=== PATIENT | female | born 1940 | race Caucasian/White ===

== ENCOUNTER → 2019-10-17 12:35 | Outpatient (CLI) | payer MEDICARE, OTHER, SELFPAY ==
[2013-02-16 10:15] VITALS: BMI 36.9
[2019-10-17 15:32] LABS: Hematocrit 40.1 % (37-47); Hemoglobin 13.3 g/dL (12.0-15.0); Mean Corp Hgb Conc 33.2 g/dL (32-36); Mean Corpuscular Hgb 29.6 pg (27.0-32.0); Mean Corpuscular Volume 89.3 fL (81-99); Mean Platelet Vol. 10.3 fl (6.2-12.0); Platelet Count 261 K/mm3 (150-450); RBC Distribution Width SD 42.6 fl (35.1-43.9); Red Blood Count 4.49 M/mm3 (4.2-5.4); White Blood Count 8.3 K/mm3 (4.4-11.0)
== END ==
PROVIDERS: PCP Family Medicine; Referring Provider Internal Medicine Pulmonary Disease; Visit Provider Internal Medicine Pulmonary Disease
DX: I10 Essential (primary) hypertension (principal); R05 Cough; T78.40XA Allergy, unspecified, initial encounter; X58.XXXA Exposure to other specified factors, initial encounter
CPT/HCPCS: 36415; 85027

== ENCOUNTER → 2022-02-20 | Outpatient (CLI) | payer MEDICARE, OTHER, SELFPAY ==
--- NOTE | 2022-02-20 12:57 | CT_ITS ---
STUDY: CT RIGHT SHOULDER REASON FOR EXAM: Female, 81 years old. Preoperative evaluation. RADIATION DOSAGE (If Supplied By Facility): CTDIvol = ( 25.74 ) mGy, DLP = ( 636.63 ) mGycm TECHNIQUE: The patient was scanned in a multi detector CT scanner. High resolution transaxial imaging was performed without the administration of intravenous contrast material. Sagittal and coronal images were reconstructed. Individualized dose optimization techniques were used for this CT. COMPARISON: None. FINDINGS: Osteopenia. Marked arthrosis of the glenohumeral joint with near complete loss of articular cartilage and large osteophytes. Moderate arthrosis of the AC joint. Large glenohumeral joint effusion with multiple intra-articular osteochondral bodies within the joint and the subscapularis recess, largest of which measures approximately 2 cm in widest diameter. CT/Extremity Upper without Contra IMPRESSION: Osteopenia with marked osteoarthrosis of the glenohumeral joint with large osteophytes. Mild arthrosis of the AC joint. Large glenohumeral joint effusion with multiple intra-articular osteochondral bodies as described. No acute finding. Electronically Signed: Som Simmons, at 14:10 EST ,
== END | disposition home or self-care (01) ==
PROVIDERS: PCP Family Medicine; Referring Provider Student in an Organized Health Care Education/Training Program; Visit Provider Student in an Organized Health Care Education/Training Program
DX: M19.011 Primary osteoarthritis, right shoulder (principal)
CPT/HCPCS: 73200

== ENCOUNTER 2022-03-13 09:07 | Observation (INO) | payer MEDICARE, OTHER, SELFPAY ==
[2022-03-13] VITALS (10 sets, daily range): BP systolic 136–184; BP diastolic 48–72; PULSE 55–72; RESP 16–18; TEMP 35.9–36.8; O2SAT 95–100; BMI 36.6
[2022-03-13] MEDS: Magnesium 2 GM for ERAS IV (06:05)
[2022-03-13] MEDS: Lactated Ringers 1,000 ML 15 ML IV ×2 (06:14→09:00)
[2022-03-13] MEDS: Acetaminophen 500 MG Tablet 1000 MG PO ×3 (06:15→21:36)
[2022-03-13] MEDS: Gabapentin 600 MG Tablet PO (06:15)
[2022-03-13 06:51] LABS: Bedside Glucose 107 mg/dL (74-106)
--- NOTE | 2022-03-13 07:30 | BON_PTH ---
PATIENT: ALETHEA BUSTILLO LOC: MS3 U#:[id number] AGE/SX: 81/F ROOM: [facility] RE03/13/[address]: Dr. Fantasma King DO : 1940 BED: 1 DIS: 03/14/2022 SPEC #: [id number] RECD: 03/13/22 16:01 STATUS: GIGI CANADASouleymane #: [id number] CARINA: 03/13/22 07:[address]: Fantasma King DEPT: SURGICAL PATHOLOGY RECD BY: Yudith Toledo ENTERED: 03/14/22 11:39 SP TYPE: Bone OTHR DR: Dr. Lokesh Nix MD Tissues: Humerus, NOS Procedures: Decalcification bone/plaque Surgery Specimen Level IV HEADER OPERATION: ERAS, total shoulder replacement, reverse PRE-OP DIAGNOSIS: Primary osteoarthritis right shoulder TISSUE SUBMITTED: Right humeral head MICROSCOPIC DIAGNOSIS Right humeral head, total shoulder replacement/resection: Humeral head with degenerative osteoarthritic changes. AM:hany 03/19/2022 MICROSCOPIC DESCRIPTION Slides are reviewed. GROSS DESCRIPTION Received is one container labeled with the patient's name and designated right humeral head. The specimen consists of a humeral head measuring 4.5 x 4.5 x 2 cm. The articular surface shows areas of erosion, eburnation and osteophyte formation. Winding Inspector sections are submitted in one cassette after decalcification. / SJ:hany 03/14/2022 TC:5 CPT: 02190, 44024
[2022-03-13] MEDS: Cefazolin 2 GM in 0.9% Normal Saline 100 ML IV (07:32)
[2022-03-13] MEDS: TXA 1000mg in NS100 100ml (IVPB at Incision) 660 MG IV (07:42)
[2022-03-13] MEDS: TXA 1000mg in NS100 100ml (IVPB at Closure) 660 MG IV (09:00)
--- NOTE | 2022-03-13 09:06 | RAD_ITS ---
STUDY: X-RAY - RIGHT SHOULDER REASON FOR EXAM: Female, 81 years old. Post op -- AP and Lateral X-Ray of operative shoulder in PACU TECHNIQUE: 2 view(s) of the shoulder. COMPARISON: None. FINDINGS: The patient is status post reverse right shoulder replacement. There is good alignment. RAD/Shoulder min 2 Views IMPRESSION: Status post reverse total shoulder replacement. There is good alignment. Electronically Signed: Shai Taylor MD at 10:06 EST ,
--- NOTE | 2022-03-13 09:48 | PCM.OPRPT ---
Report of Operation Description of Surgical Findings:: Preoperative diagnosis: Right shoulder rotator cuff arthropathy Postoperative diagnosis: Right shoulder rotator cuff arthropathy Procedure: Right reverse total shoulder arthroplasty Surgeon: Fantasma King DO Neurocritical Care Physician: DALILA Ortiz Anesthesia: General endotracheal with interscalene block Switch Repairer: Shaun Tamez CRNA Complications: None apparent Drains: None Estimated blood loss: 250 cc Urinary output: None IV fluids: 700 cc crystalloid Specimens: Right humeral head Surgical implants: Tornier Aequalis PerFORM+ reversed standard +6 mm lateralization baseplate 25 mm diameter, standard glenosphere cobalt chrome 36 mm diameter, Tornier perform inlay stem size #2, +6 size number 2 36 mm diameter polyethylene insert, 25 mm central screw. Peripheral screws x4 Surgical indications: This is a 81-year-old female with persistent right shoulder pain and weakness. X-rays revealed rotator cuff arthropathy. She failed nonoperative management form of activity modification, NSAIDs, corticosteroid injections and physical therapy. I recommended a reverse shoulder arthroplasty. We obtained a preoperative CT scan for planning. The risks, benefits, alternatives the procedure was reviewed with the patient and she agreed to proceed. Risks included but were not limited to bleeding, infection, instability, loss of life or limb, risk of anesthesia, neurovascular injury, persistent pain, stiffness, prolonged immobilization, need for additional surgery, loosening of orthopedic hardware. She her expressed understanding and wished to proceed with surgery. Surgical details: Patient arrived to [facility] morning of the procedure and was greeted by the same day surgery staff. Prior to her procedure, I greeted the patient in the preoperative holding area. I identified the patient by name, record number, and date of . Informed consent was confirmed. The operative extremity was marked. All questions were answered to patient satisfaction. An interscalene block was administered in the preoperative holding area by anesthesia staff. At time of her procedure, patient was brought to the operative suite and positioned supine on a standard table with a beachchair attachment. General anesthesia was induced after all bony prominences were well-padded. Endotracheal tube was placed. After adequate anesthesia and securing the tube, we prepared the patient to be positioned in the beachchair position. A well-padded head inspector and center marker was applied. The nonoperative extremity was placed in a well arm alford. She was then brought into the beachchair position after we confirmed an appropriate blood pressure. We then spun the bed 45 degrees. The operative extremity was then prepared. Then the butterfly wing of the bed was removed and a well-padded torso strap was applied to secure the patient to the bed. The operative extremity was now free. We then prepped and draped the right upper extremity in normal, sterile orthopedic fashion. We then performed a timeout with all parties in attendance in agreement with the side, site, and operation be performed. 2 g Ancef was administered prior to incision by anesthesia staff, as well as 1 g TXA IV. No concerns were voiced and we elected to proceed. I first marked a standard deltopectoral incision just lateral to the coracoid process in line with the long axis of the humerus. Skin was sharply incised with 10 blade scalpel. I then dissected bluntly through the subcutaneous layers and found the fat stripe between the deltoid and pectoralis major. The cephalic vein was then identified and protected. It was retracted laterally with the deltoid. I then bluntly dissected underneath the deltoid with a Massey elevator. Karen retractor was placed. The upper 1 cm of the pectoralis major was released. I then identified the long head of the biceps tendon in the intertubercular groove. This was tenodesed in situ with #2 FiberWire. I then amputated the biceps proximal to the tenodesis site and followed the tendon to the supraglenoid tubercle where it was amputated. This identified the lesser and greater tuberosities. The supraspinatus was completely torn and retracted with an exposed greater tuberosity. I then performed a subscapularis peel while rotating the humerus externally. I tagged the subscapularis for possible repair later with a tagging suture. I then made a anatomic neck cut of the cartilaginous surface of the humeral head. Sizing plate for a size #2 stem was utilized to determine appropriate reaming size. A central pin was placed engaging the lateral cortex of the humerus. A size #2 reamer was used to ream the humeral metaphysis and prepare for the inlay stem. A canal finding reamer was utilized prior to sequential broaching to a size #2 short stem with excellent rotational and axial purchase in the humerus. I removed the broach handle but left the size #[address] I then subluxed the humerus posterior to the glenoid. I then placed retractors around the posterior and anterior glenoid to expose the glenoid. Glenoid labrum was removed with Bovie cautery protecting the axillary nerve. Center pin was placed in approximately 0 degrees of retroversion with pin exiting approximately 25 mm along the anterior cortex of the scapula. Guide was removed and pin was analyzed and compared to preoperative planning. It appeared to be in appropriate position. The Nautilus shaped glenoid resurfacing reamer was then used to ream a flat surface of the glenoid. Significant inferior portion of the glenoid was removed with the reamer. We then removed the reamer and used the cannulated drill for the central 25 mm screw. Pin was removed. Post and baseplate was assembled on the back table. We then inserted the baseplate and central screw the assembled baseplate to an appropriate depth and rotation of the wedge to sit flush with the prepared glenoid surface. A [place] was used to confirm depth. Cortical screws then were placed in the peripheral holes with good purchase. The baseplate had excellent purchase and the entire scapula would rotate with rotation of the baseplate. We then impacted the 36 mm glenosphere with a standard eccentricity and tightened the locking screw mechanism. We then removed retractors and turned our attention back to the humerus. I placed a standard +3 polyethylene insert. I then reduced the shoulder. There was excellent range of motion. Deltoid wrap tension did not feel to be restored and I dislocated the shoulder replacing the polyethylene with a +6 mm trial. Range of motion was excellent. Stability was excellent without evidence of bony impingement. We selected this as our final size. We removed trials from the humerus after final dislocation. I copiously irrigated the canal. Broach was placed on hand and then impacted to an appropriate depth. Final +6 mm polyethylene insert was placed. Final reduction was then performed. I then copiously irrigated the wound with sterile Betadine and normal saline solution. Hemostasis was excellent. The axillary nerve was visualized and appeared to be intact. An additional 1 g IV TXA was administered at time of closure. The subscapularis was then identified with a tagging suture. Repair would have been likely under undue tension and likely failed. I elected to not perform a subscapularis repair. We reapproximated the interval with 0 Vicryl suture. Subcutaneous layers were reapproximated with 2 -0 Vicryl suture. Skin was finally running V-Loc 3-0 Monocryl suture and Dermabond. A sterile silver Mepilex dressing was applied. Patient was then placed in an abduction pillow sling. Patient tolerated procedure well without complication. She was positioned back in the supine position extubated in the operative suite. She was transferred to the [facility] and subsequently to PACU in stable condition. Intraoperative medications: 2 g Ancef IV, 1 g TXA IV x2 Post Operative Plan: Given her age and comorbidities, patient will be placed in observation tonight for medical monitoring and early convalescence. Plan for discharge home tomorrow if uneventful stay overnight. Weightbearing: Nonweightbearing left upper extremity, okay for pendulums. Range of motion of wrist elbow and hand as tolerated. Antibiotics: 2 g Ancef IV prior to incision, 24 hours IV antibiotics postoperatively DVT Prophylaxis: Aspirin enteric-coated 81 mg twice daily starting tomorrow Lane: None Dressing: Maintain silver dressing x7 days. Okay to shower dressing on started on day 4 X-Rays: 2 weeks postop in the office Pain Medication: Oxycodone Rx upon discharge Follow-up: 2 weeks post-operatively with me in the office
[2022-03-13] MEDS: Famotidine 20 MG Tablet PO (15:25)
[2022-03-13] MEDS: Cefazolin 1 GM/50 ML BAG IV (15:25)
[2022-03-13] MEDS: Senna/Docusate Sodium 1 Tablet 2 TABLET PO (21:36)
[2022-03-14] MEDS: Cefazolin 1 GM/50 ML BAG IV (00:39)
[2022-03-14 02:20] VITALS: BP 145/64; PULSE 64; RESP 18; TEMP 36.6; O2SAT 97
[2022-03-14] MEDS: oxyCODONE 5 MG Tablet PO ×2 (03:36→11:30)
[2022-03-14] MEDS: Acetaminophen 500 MG Tablet 1000 MG PO (05:27)
[2022-03-14 06:29] LABS: Hematocrit 37.6 % (37-47); Hemoglobin 12.2 g/dL (12.0-15.0); Mean Corp Hgb Conc 32.4 g/dL (32-36); Mean Corpuscular Hgb 30.1 pg (27.0-32.0); Mean Corpuscular Volume 92.8 fL (81-99); Mean Platelet Vol. 9.7 fl (6.2-12.0); Platelet Count 244 K/mm3 (150-450); RBC Distribution Width CV 12.5 % (11.6-14.6); RBC Distribution Width SD 42.7 fl (35.1-43.9); Red Blood Count 4.05 M/mm3 (4.2-5.4); White Blood Count 13.7 K/mm3 (4.4-11.0)
[2022-03-14 06:53] LABS: Anion Gap 7 (5-15); BUN 21 mg/dL (7-18); Calcium,Total 8.9 mg/dL (8.5-10.1); Chloride 100 mmol/L (98-107); EST Glomerular Filtration Rate 57 mL/min (>60); Est Glom Filt Rate - Afr Amer 69 mL/min (>60); Estimated Creatinine Clearance 37.12 ml/min; Glucose 129 mg/dL (74-106); Potassium 4.6 mmol/L (3.5-5.1); Sodium Level 134 mmol/L (136-145)
--- NOTE | 2022-03-14 07:08 | PCM.PN.ORT ---
Subjective Subjective Patient seen and examined. Nerve block is worn off. Pain is controlled with current pain regimen. Denies any fevers, chills, nausea vomiting, chest pain or shortness of breath. Objective Data Objective Data Vital Signs: Vital Signs Temp Pulse Resp BP Pulse Ox O2 Del Method O2 Flow Rate 97.8 F 64 18 145/64 H 97 Room Air 4 03/14/22 02:20 03/14/22 02:20 03/14/22 02:20 03/14/22 02:20 03/14/22 02:20 03/14/22 02:20 03/13/22 13:28 Oxygen Flow Rate (L/min) 4 Oxygen Delivery Method Room Air Weight: 207 lb Body Mass Index (BMI) 36.6 Intake & Output: Intake and Output for Last 24 Hours 03/12/22 03/13/22 03/14/22 23:59 23:59 23:59 Intake Total 1822.00 / 2422.00 650 / 650 Output Total 241 / 241 Balance 1581.00 / 2181.00 650 / 650 Lab / Micro Data Result Diagrams: 03/14/22 06:15 03/14/22 06:15 Labs: Laboratory Results - last 24 hr 03/14/22 06:15: WBC 13.7 H, RBC 4.05 L, Hgb 12.2, Hct 37.6, MCV 92.8, MCH 30.1, MCHC 32.4, RDW Std Deviation 42.7, RDW Coeff of Gustavo 12.5, Plt Count 244, MPV 9.7 03/14/22 06:15: Sodium 134 L, Potassium 4.6, Chloride 100, Carbon Dioxide 27.0, Anion Gap 7, BUN 21 H, Creatinine 1.00, Estim Creat Clear Calc 37.12, Est GFR (MDRD) Af Amer 69, Est GFR (MDRD) Non-Af 57 L, BUN/Creatinine Ratio 21.0 H, Glucose 129 H, Calcium 8.9 Radiography Diagnostic Testing: Radiology Impression Shoulder X-Ray 03/13/22 09:06 IMPRESSION: Status post reverse total shoulder replacement. There is good alignment. Electronically Signed: Shai Taylor MD at 10:06 EST , Physical Exam Narrative General - A&Ox3, NAD. VSS/AF. Right upper Extremity - SILT & motor intact in radial, ulnar, musculocutaneous, axillary, and median nerve distributions. Radial, ulnar pulses 2+. Compartments soft and compressible. BCR in finger tips. Incisional dressing C/D/I. Calves are soft and nontender bilaterally Assessment & Plan Assessment/Plan (1) Post-op pain: PLAN: POD#1 s/p right reverse shoulder arthroplasty - Pain control -Occupational Therapy ordered-pendulums only to the right shoulder, okay for active elbow flexion extension, wrist and hand motion - DVT PPX -aspirin 81 mg twice daily to start today - Case management - D/C planning Plan for discharge home today. Follow-up in 2 weeks as previously scheduled. Plan to start outpatient physical therapy at 2 weeks.
--- NOTE | 2022-03-14 07:10 | DCINST_ITS ---
Discharge Instructions Follow Up Care Test Results: Test results from this visit will be discussed in further detail at your follow- up appointment, if applicable. Discharge Plan Admission Admit Date/Time: 03/13/22 09:07 Primary Reason for Your Visit: Right shoulder replacement Attending Provider: Fantasma King Primary Care Provider: Lokesh Nix Instructions Additional Instructions / Restrictions: Follow preprinted instructions from your surgeon's office. Discharge Orders/Prescriptions Prescriptions: New meloxicam 15 mg tablet 15 mg PO DAILY 30 Days Qty: 30 0RF oxycodone 5 mg tablet 5 mg PO Q4H PRN (Reason: pain) 7 Days Qty: 42 0RF famotidine 20 mg tablet 20 mg PO DAILY 30 Days Qty: 30 0RF No Action atenolol-chlorthalidone 1 TAB tablet 0.5 tab PO DAILY Label Comments: blood pressure lovastatin 20 MG tablet 20 mg PO DAILY Label Comments: helps lower chlosterol cholecalciferol (vitamin D3) [Vitamin D3] 1,000 UNIT capsule 1,000 unit PO DAILY Label Comments: vit d fexofenadine-pseudoephedrine [Niki-D 24 Hour] 1 TAB.SR tablet extended release 24 hr 1 tab.sr PO DAILY Label Comments: allergies calcium carbonate-vitamin D3 [Oyster Shell Calcium-Vit D3] 1 TABLET tablet 1 tab PO BIDCM Label Comments: vitamin multivitamin with folic acid [Thera] 1 TABLET tablet 1 tab PO DAILY Label Comments: vitamin glucosamine [id number] 1 EACH tablet 1 ea PO DAILY Label Comments: otc joint supplement albuterol (refill) 90 mcg/actuation Aerosol 90 mcg INHALATION PRN PRN (Reason: SOB) Probiotic 3 billion cell Capsule 3,000 mmu cells PO DAILY Rx Instructions: administer with a meal Arnuity Ellipta 100 mcg/actuation Blister With Device 1 inh INHALATION DAILY albuterol sulfate 90 mcg/actuation Aero Powdr Breath Act W/Sensor 90 mcg INHALATION Q4H PRN (Reason: ASTHMA) Referrals / Follow Up: Lokesh Nix MD [Primary Care Provider] - Fantasma King DO [Med Staff - Active Staff] -
[2022-03-14 07:48] VITALS: PULSE 64; RESP 16; O2SAT 99
[2022-03-14] MEDS: Budesonide Respules 0.5 MG/2 ML AMPUL.NEB. INHALATION (07:48)
[2022-03-14] MEDS: Albuterol 2.5 MG/3 ML VIAL.NEB. INHALATION (07:48)
[2022-03-14 08:00] VITALS: BP 143/53; PULSE 83; RESP 18; TEMP 36.5; O2SAT 95
[2022-03-14] MEDS: Chlorthalidone 50 MG Tablet 12.5 MG PO (08:31)
[2022-03-14] MEDS: Senna/Docusate Sodium 1 Tablet 2 TABLET PO (08:33)
[2022-03-14] MEDS: Loratadine 10 MG Tablet PO (08:33)
[2022-03-14] MEDS: Aspirin E.C. 81 MG Tablet PO (08:34)
[2022-03-14] MEDS: Famotidine 20 MG Tablet PO (08:34)
[2022-03-14] MEDS: Atenolol 25 MG Tablet PO (08:35)
--- NOTE | 2022-03-14 08:43 | NURSING ---
Denies need for bathroom as she went recently. This RN assisted into chair. Bedside table and call light in reach.
--- NOTE | 2022-03-14 09:24 | CASEMGMT ---
SAMANTA GEE Assessment: Face to Face with pt for initial transition planning/care coordination assessment. SAMANTA GEE introduced self and role at [facility], pt voices understanding and consents to assessment. Pt is A/O x4 and answers all questions appropriately at this time. Pt sitting up in chair in no distress. Care providers, pharmacy, and demographics verified/updated. Admitting Dx:R reverse total shoulder PCP:Dinah Specialists:augustina King; robyn Puentes [facility]erred [facility]: yes LNOK: Tamir Mike, Living Arrangements: Pt lives with in a single story home with 2 steps to enter with a rail. Pt reports she is typically I in ADL's. Pt denies concerns at home. Transportation: Pt drives self and denies concerns with transportation. Pt will transport pt until she can drive again. DME/HHC/SNF: Pt has an elevated toilet seat, standard walker and cane. Pt does not use AD. Pt has had [facility] in the past and denies SNF stays. Pt states no concerns with going home at time of dc. Pt states no further concerns/needs. CM to follow. Advised pt to ask CM if any further question/concerns/needs arise, voices understanding. Pt Goal: Home Plan: Home SAMANTA GEE in to discuss LARA form with patient. SAMANTA GEE explained LARA form, patient voiced understanding. Pt signed form and filed in chart. Pt provided with a copy of signed LARA form. Patient had no further questions or concerns at this time.
--- NOTE | 2022-03-14 11:28 | DS.PCM_ITS ---
Providers Date of Admission: 03/13/22 Primary Care Physician: Dr. Lokesh Nix MD Reason For Visit: RT REVERSE TOTAL SHOULDER Diagnosis Discharge Diagnosis (1) Post-op pain: Status: Acute Code(s): G89.18 - Other acute postprocedural pain Plan: POD#1 s/p right reverse shoulder arthroplasty - Pain control -Occupational Therapy ordered-pendulums only to the right shoulder, okay for active elbow flexion extension, wrist and hand motion - DVT PPX -aspirin 81 mg twice daily to start today - Case management - D/C planning Plan for discharge home today. Follow-up in 2 weeks as previously scheduled. Plan to start outpatient physical therapy at 2 weeks. Medications at Discharge Home Medications atenolol 50 mg-chlorthalidone 25 mg tablet 0.5 tab PO DAILY 02/08/13 calcium carbonate 500 mg-vitamin D3 5 mcg (200 unit) tablet (Oyster Shell Calcium-Vitamin D3) 1 tab PO BIDCM 02/08/13 cholecalciferol (vitamin D3) 25 mcg (1,000 unit) capsule (Vitamin D3) 1,000 unit PO DAILY 02/08/13 fexofenadine-pseudoephedrine ER 180 mg-240 mg tablet,ext.release 24 hr (Niki- D 24 Hour) 1 tab.sr PO DAILY 02/08/13 glucosamine sulfate 500 mg-chondroitin 400 mg-msm 167 mg tablet 1 ea PO DAILY 02/08/13 lovastatin 20 mg tablet 20 mg PO DAILY 02/08/13 multivitamin with folic acid 400 mcg tablet (Thera) 1 tab PO DAILY 02/08/13 albuterol (refill) 90 mcg/actuation aerosol inhaler 90 mcg inhalation PRN PRN SOB 02/27/22 albuterol sulfate 90 mcg/actuation breath activated powder inhaler,sensor 90 mcg inhalation Q4H PRN ASTHMA 02/27/22 fluticasone furoate 100 mcg/actuation blister powder for inhalation (Arnuity Ellipta) 1 inh inhalation DAILY 02/27/22 lactobacillus combination no.4 3 billion cell capsule (Probiotic) 3,000 mmu cells PO DAILY 02/27/22 famotidine 20 mg tablet 20 mg PO DAILY 30 days #30 tabs 03/13/22 meloxicam 15 mg tablet 15 mg PO DAILY 30 days #30 tabs 03/13/22 oxycodone 5 mg tablet 5 mg PO Q4H PRN pain 7 days #42 tabs 03/13/22 acetaminophen 500 mg tablet 1,000 mg PO Q8 30 days #180 tabs 03/14/22 aspirin 81 mg tablet,delayed release 81 mg PO BID 28 days #56 tabs 03/14/22 Hospital Course Summary of Care Provided Minutes Spent on Discharge: 15 Hospital Course: Patient underwent uncomplicated right reverse shoulder arthroplasty 03/13/2022. She was placed observation overnight for early convalescence. No medical or surgical complications were encountered throughout her stay. She worked well with occupational therapy. She was able be safely discharged to home in stable condition on postoperative day #1. Physical Exam Narrative General - A&Ox3, NAD. VSS/AF. Right upper Extremity - SILT & motor intact in radial, ulnar, musculocutaneous, axillary, and median nerve distributions. Radial, ulnar pulses 2+. Compartments soft and compressible. BCR in finger tips. Incisional dressing C/D/I. Calves are soft and nontender bilaterally Weight / BMI Weight Weight: 207 lb Body Mass Index (BMI) 36.6 ABG / Lab / Microbiology Data Result Diagrams: 03/14/22 06:15 03/14/22 06:15 Laboratory: Laboratory Results - last 24 hr 03/14/22 06:15: WBC 13.7 H, RBC 4.05 L, Hgb 12.2, Hct 37.6, MCV 92.8, MCH 30.1, MCHC 32.4, RDW Std Deviation 42.7, RDW Coeff of Gustavo 12.5, Plt Count 244, MPV 9.7 03/14/22 06:15: Sodium 134 L, Potassium 4.6, Chloride 100, Carbon Dioxide 27.0, Anion Gap 7, BUN 21 H, Creatinine 1.00, Estim Creat Clear Calc 37.12, Est GFR (MDRD) Af Amer 69, Est GFR (MDRD) Non-Af 57 L, BUN/Creatinine Ratio 21.0 H, Glucose 129 H, Calcium 8.9 Meaningful Use Info Meaningful Use Diagnoses (Choose all that apply): None applicable Discharge Plan Admission Admit Date/Time: 03/13/22 09:07 Primary Reason for Your Visit: Right shoulder replacement Attending Provider: Fantasma King Primary Care Provider: Lokesh Nix Instructions Additional Instructions / Restrictions: Follow preprinted instructions from your surgeon's office. Discharge Orders/Prescriptions Prescriptions: New meloxicam 15 mg tablet 15 mg PO DAILY 30 Days Qty: 30 0RF oxycodone 5 mg tablet 5 mg PO Q4H PRN (Reason: pain) 7 Days Qty: 42 0RF famotidine 20 mg tablet 20 mg PO DAILY 30 Days Qty: 30 0RF aspirin 81 mg Tablet,Delayed Release (Dr/Ec) 81 mg PO BID 28 Days Qty: 56 0RF acetaminophen 500 mg Tablet 1,000 mg PO Q8 30 Days Qty: 180 0RF No Action atenolol-chlorthalidone 1 TAB tablet 0.5 tab PO DAILY Label Comments: blood pressure lovastatin 20 MG tablet 20 mg PO DAILY Label Comments: helps lower chlosterol cholecalciferol (vitamin D3) [Vitamin D3] 1,000 UNIT capsule 1,000 unit PO DAILY Label Comments: vit d fexofenadine-pseudoephedrine [Niki-D 24 Hour] 1 TAB.SR tablet extended release 24 hr 1 tab.sr PO DAILY Label Comments: allergies calcium carbonate-vitamin D3 [Oyster Shell Calcium-Vit D3] 1 TABLET tablet 1 tab PO BIDCM Label Comments: vitamin multivitamin with folic acid [Thera] 1 TABLET tablet 1 tab PO DAILY Label Comments: vitamin glucosamine bct-yaqdritght-cho 1 EACH tablet 1 ea PO DAILY Label Comments: otc joint supplement albuterol (refill) 90 mcg/actuation Aerosol 90 mcg INHALATION PRN PRN (Reason: SOB) Probiotic 3 billion cell Capsule 3,000 mmu cells PO DAILY Rx Instructions: administer with a meal Arnuity Ellipta 100 mcg/actuation Blister With Device 1 inh INHALATION DAILY albuterol sulfate 90 mcg/actuation Aero Powdr Breath Act W/Sensor 90 mcg INHALATION Q4H PRN (Reason: ASTHMA) Referrals / Follow Up: Lokesh Nix MD [Primary Care Provider] - Fantasma King DO [Med Staff - Active Staff] - Disposition Disposition (needs filled in before D/C Order can be placed): Home, Self Care
== END 2022-03-14 12:15 | disposition home or self-care (01) ==
LOC: SDC 10:40 → MS3 10:40
PROVIDERS: Admitting Provider Student in an Organized Health Care Education/Training Program; PCP Family Medicine; Referring Provider Student in an Organized Health Care Education/Training Program; Visit Provider Student in an Organized Health Care Education/Training Program
PROC: (CPT 23472; principal; 2022-03-13 07:00)
DX: M19.011 Primary osteoarthritis, right shoulder (principal); I10 Essential (primary) hypertension; J45.909 Unspecified asthma, uncomplicated; Z79.899 Other long term (current) drug therapy; E66.8 Other obesity; Z68.35 Body mass index [BMI] 35.0-35.9, adult; Z86.718 Personal history of other venous thrombosis and embolism; Z86.2 Personal history of diseases of the blood and blood-forming organs and certain disorders involving the immune mechanism; F41.9 Anxiety disorder, unspecified; F32.A Depression, unspecified; E78.00 Pure hypercholesterolemia, unspecified; R06.02 Shortness of breath
CPT/HCPCS: 23472; 01638; 64415; 36415; 73030; 80048; 82962; 85027; 88305; 88311; 94640; 96365; 96366; 97166; 99221; C1776; J7050; J7120; G0378; J2405